=== PATIENT | female | born 1955 | race Caucasian/White ===

== ENCOUNTER 2016-06-09 07:24 | Day surgery (SDC) | payer BC ==
[~2016-06-09] VITALS: Ht 165.1 cm; Wt 71.4 kg
--- NOTE | 2016-06-16 06:27 | OR ---
ADMIT: 06/09/2016 RM/LOC: [facility] MR#: [id number] [address] [id number] JAYNA LINN [address] [place] [address] Operative/Delivery Room Report SEX: F AGE: 61 : 1955 SURGERY DATE: 06/09/2016 SURGEON: Lai Combs MD PREOPERATIVE DIAGNOSIS: Right breast cancer. POSTOP DIAGNOSIS: Right breast cancer. FINAL PATHOLOGY: Pending. PROCEDURES: 1. Injection of Lymphazurin for identification of right axillary sentinel node. 2. Right axillary sentinel node biopsy. 3. Right needle localizing lumpectomy from the upper outer quadrant of the right breast. PATIENT ADVOCATE: ASHVIN Ruiz who was necessary for adequate exposure, retraction, and completion of this case. ANESTHESIA: General endotracheal tube anesthesia. ESTIMATED BLOOD LOSS: 10 mL or less. SPECIMEN: Right axillary sentinel node and then right needle localized lumpectomy to path. INDICATION FOR PROCEDURE: Please see H and P. PROCEDURE IN DETAIL: After the risks, benefits, possible complications, and the alternatives had been explained, and informed consent had been obtained, the patient was taken back to the operating room, underwent general endotracheal tube anesthesia, and the surgical field was prepped and draped in a sterile manner. I injected my isosulfan blue dye, massaged for about 3 minutes. Using the navigator, there was a hot area in the right axilla. Made an incision down the skin and subcutaneous tissue, followed a very nice blue lymphatic coming right into a blue node that had a hot count of about a little over a 1000 and there was basically no other count in the right axilla. It was removed and will be sent as right axillary sentinel node. Once that was done, irrigated out with sterile water, closed with 3-0 Vicryl and 4-0 ADMIT: 06/09/2016 RM/LOC: [facility] MR#: [id number] [facility] [address] [place] [id number] JAYNA LINN [address] [place] [address] Operative/Delivery Room Report SEX: F AGE: 61 : 1955 Monocryl. Then went to the lumpectomy. An incision was made in the upper outer quadrant of the right breast down through skin and subcutaneous tissue, brought the wire through and followed it down to where I felt I was getting close to the lesion. I went past the tip of the needle away, went right down to the fascia of the breast and actually took a little of the fascia off to make sure that everything was removed in its entirety. I felt we got around it nicely. It was sent to Radiology and mammogram picture of it showed that we definitely had the area in question, appears to be good margins. Irrigated that out with some sterile water, maintained some hemostasis with electrocautery. Then closed with 3-0 Vicryl and 4-0 Monocryl. I did inject 0.5% Marcaine for some pain control. She tolerated the procedure well. She was extubated and taken to recovery room in stable and satisfactory condition. Lai Combs MD/ [facility] JOB #: [id number] CC: Lai Combs, Attending Physician Christine Lewis, Family Physician
== END 2016-06-09 15:20 | disposition home or self-care (01) ==
LOC: RAD.S 07:24
DX: C50.911 Malignant neoplasm of unspecified site of right female breast (principal); I10 Essential (primary) hypertension; K21.9 Gastro-esophageal reflux disease without esophagitis; E03.9 Hypothyroidism, unspecified; Z90.710 Acquired absence of both cervix and uterus; Z98.51 Tubal ligation status; Z98.890 Other specified postprocedural states; Z79.899 Other long term (current) drug therapy